=== PATIENT | female | born 1940 | race Two or more races ===

== ENCOUNTER 2017-05-03 20:00 | Emergency (ER) | payer OTHER ==
[~2017-05-03] VITALS: Ht 162.6 cm; Wt 86.2 kg
[~2017-05-03 20:00] MED LIST: APRESOLINE 10MG10 MG; CARDURA1 MG; CLOPIDOGREL BIS75 MG; COZAAR100 MG; DONEPEZIL HCL5 MG; HUMALOG100 U/ML; INTESTINEX1 CAP PO; LASIX40 MG; LEVOTHYROXINE112 MCG; LIPITOR40 MG; METOPROLOL SUC200 MG; NORVASC2.5 MG; PEPCID40 MG PO; PROTONIX40 MG PO; SERTRALINE HCL50 MG; SYNTHROID100 MCG; VASOTEC10 MG PO; ZOFRAN4 MG PO
[2017-05-03] MEDS ORDERED: METOPROLOL ER-1 EAC2 (20:40)
[2017-05-03] MEDS ORDERED: ADULT ASPIRIN81 MG (20:42)
== END 2017-05-03 22:33 | disposition home or self-care (01) ==
LOC: ER 20:00
DX: S50.11XA Contusion of right forearm, initial encounter (principal); L03.113 Cellulitis of right upper limb; W18.39XA Other fall on same level, initial encounter; Y93.89 Activity, other specified; Y92.098 Other place in other non-institutional residence as the place of occurrence of the external cause; Y99.8 Other external cause status

== ENCOUNTER 2017-10-29 14:07 | Inpatient (IN) | payer OTHER ==
[~2017-10-29] VITALS: Ht 149.9 cm; Wt 77.1 kg
[~2017-10-29 14:07] MED LIST changes: +ADULT ASPIRIN81 MG; +METOPROLOL ER-1 EAC2
== END 2017-11-08 12:20 | disposition home or self-care (01) | DRG 280 ==
LOC: ER 14:07 → ICU-2 10-30 07:13 → SEC-K 11-03 09:35 → MEDI 11-03 10:47
PROC: 4A033R1 Measurement of Arterial Saturation, Peripheral, Percutaneous Approach (ICD-10-PCS; principal; 2017-10-30)
PROC: B246ZZZ Ultrasonography of Right and Left Heart (ICD-10-PCS; 2017-10-31)
PROC: 4A12X4Z Monitoring of Cardiac Electrical Activity, External Approach (ICD-10-PCS; 2017-11-03)
DX: I21.4 Non-ST elevation (NSTEMI) myocardial infarction (principal); I50.23 Acute on chronic systolic (congestive) heart failure; F05 Delirium due to known physiological condition; N18.4 Chronic kidney disease, stage 4 (severe); I13.0 Hypertensive heart and chronic kidney disease with heart failure and stage 1 through stage 4 chronic kidney disease, or unspecified chronic kidney disease; E66.01 Morbid (severe) obesity due to excess calories; E11.22 Type 2 diabetes mellitus with diabetic chronic kidney disease; E78.4 Other hyperlipidemia; E03.8 Other specified hypothyroidism; G30.8 Other Alzheimer's disease; F02.80 Dementia in other diseases classified elsewhere, unspecified severity, without behavioral disturbance, psychotic disturbance, mood disturbance, and anxiety; I25.10 Atherosclerotic heart disease of native coronary artery without angina pectoris; I48.0 Paroxysmal atrial fibrillation; I34.0 Nonrheumatic mitral (valve) insufficiency; S61.411A Laceration without foreign body of right hand, initial encounter; X58.XXXA Exposure to other specified factors, initial encounter; Y93.89 Activity, other specified; Y92.89 Other specified places as the place of occurrence of the external cause; Y99.8 Other external cause status; Z78.1 Physical restraint status

== ENCOUNTER 2017-12-19 20:02 | Emergency (ER) | payer OTHER ==
[~2017-12-19] VITALS: Ht 152.4 cm; Wt 72.6 kg
[2017-12-19] MEDS ORDERED: ZYPREXA5 MG (20:45)
[2017-12-19] MEDS ORDERED: METOPROLOL SUCC50 MG (20:46)
[2017-12-19] MEDS ORDERED: ARICEPT10 MG (20:46)
[2017-12-19] MEDS ORDERED: SEROQUEL25 MG (20:46)
[2017-12-19] MEDS ORDERED: ZOLOFT25 MG (20:46)
[2017-12-19] MEDS ORDERED: ZOCOR40 MG (20:47)
[2017-12-19] MEDS ORDERED: PLAVIX75 MG (20:47)
[2017-12-19] MEDS ORDERED: ISOSORBIDE DINI30 MG (20:56)
== END 2017-12-20 09:39 | disposition home or self-care (01) ==
LOC: ER 20:02
DX: R22.43 Localized swelling, mass and lump, lower limb, bilateral (principal); M25.475 Effusion, left foot; M25.474 Effusion, right foot; I13.10 Hypertensive heart and chronic kidney disease without heart failure, with stage 1 through stage 4 chronic kidney disease, or unspecified chronic kidney disease; N18.9 Chronic kidney disease, unspecified; N28.9 Disorder of kidney and ureter, unspecified; E66.01 Morbid (severe) obesity due to excess calories; I48.0 Paroxysmal atrial fibrillation; I73.9 Peripheral vascular disease, unspecified; I25.10 Atherosclerotic heart disease of native coronary artery without angina pectoris; E03.8 Other specified hypothyroidism; G30.8 Other Alzheimer's disease; F02.80 Dementia in other diseases classified elsewhere, unspecified severity, without behavioral disturbance, psychotic disturbance, mood disturbance, and anxiety; E78.49 Other hyperlipidemia; E11.9 Type 2 diabetes mellitus without complications; I25.2 Old myocardial infarction

== ENCOUNTER 2018-04-08 21:20 | Inpatient (IN) | payer OTHER ==
[~2018-04-08] VITALS: Ht 162.6 cm; Wt 72.6 kg
[~2018-04-08 21:20] MED LIST changes: +ARICEPT10 MG; +ISOSORBIDE DINI30 MG; +METOPROLOL SUCC50 MG; +PLAVIX75 MG; +SEROQUEL25 MG; +ZOCOR40 MG; +ZOLOFT25 MG; +ZYPREXA5 MG
--- NOTE | 2018-04-08 21:35 | NUR ---
PT ALERTA Y ORIETNADA X3 ESFERAS SE RECIBE DESDE AMBULANCIA POR PARAMEDICOS Y FAMILIAR. REFIEREN TRAERLA DESDE HOGAR POR INAPETENCIA, DEBILIDAD Y CONJUNTIVITIS DESDE MAURI.
--- NOTE | 2018-04-08 22:37 | NUR ---
PT ALERTA Y ORIENTADA X3 ESFERAS SE LE ORIENTA SOBRE TX Y REFIERE ENTEDER. SE BRADLY MUESTRAS DE DEANNE Y VENOPUNCION CON TECNICAS ASEPTICAS. SE ADMINISTRAN MEDICAMENTOS E IVLFUIDS ORDENADOS. PT TOLERA TX. SE CATETERIZA PARA U/C Y U/A
--- NOTE | 2018-04-09 06:03 | NUR ---
SE RECIBE PACIENTE DEL TURNO ANTERIOR ALERTA Y ORIENTADA X3 EN CAMA CON BARANDAS ELEVADAS Y CABEZERA A 45 GRADOS, AREA DE VENOPUNCION PATENTE Y PRASANNA DE EDEMA BAJANDO MEDICAMENTOS ORDENADOS. PACIENTE NIEGA DOLOR U OTRO SINTOMA, SE MANTIENE BAJO OBSERVACION, SE MANTIENE BAJO OBSERVACION.
--- NOTE | 2018-04-09 09:03 | NUR ---
SE RECIBE DE TURNO ANTERIOR. PACIENTE FEMENINA. AL MOMENTO EN PERIODO DE DESCANSO. CABECERA A 30 GRADOS. BARANDAS ELEVADAS POR HERRING SEGURIDAD. BUEN PATRON RESPIRATORIO. PIEL TIBIA AL TACTO. CANALIZACION PATENTE, PRASANNA DE EDEMA Y/O ENROJECIMIENTO RECIBIENDO 0.9%NSS @100 ML/HR. PACIENTE EN ESPERA DE CONSULTA CON DR E DONALD. PACIENTE ACOMPANADA DE FAMILIAR.
[2018-04-19] MEDS ORDERED: CEFDINIR300 MG PO (14:39)
== END 2018-04-19 14:51 | disposition home or self-care (01) | DRG 698 ==
LOC: ER 21:20 → MEDJ 04-09 10:27
PROVIDERS: ADMIT Internal Medicine
PROC: 0T9B70Z Drainage of Bladder with Drainage Device, Via Natural or Artificial Opening (ICD-10-PCS; 2018-04-09)
PROC: BW40ZZZ Ultrasonography of Abdomen (ICD-10-PCS; principal; 2018-04-17)
PROC: BW4GZZZ Ultrasonography of Pelvic Region (ICD-10-PCS; 2018-04-17)
DX: E11.22 Type 2 diabetes mellitus with diabetic chronic kidney disease (principal); I50.31 Acute diastolic (congestive) heart failure; I21.4 Non-ST elevation (NSTEMI) myocardial infarction; N39.0 Urinary tract infection, site not specified; I13.0 Hypertensive heart and chronic kidney disease with heart failure and stage 1 through stage 4 chronic kidney disease, or unspecified chronic kidney disease; L03.113 Cellulitis of right upper limb; I69.351 Hemiplegia and hemiparesis following cerebral infarction affecting right dominant side; E11.65 Type 2 diabetes mellitus with hyperglycemia; N18.4 Chronic kidney disease, stage 4 (severe); N17.8 Other acute kidney failure; Z79.4 Long term (current) use of insulin; I25.10 Atherosclerotic heart disease of native coronary artery without angina pectoris; E66.01 Morbid (severe) obesity due to excess calories; I48.2 Chronic atrial fibrillation; Z79.01 Long term (current) use of anticoagulants; G30.0 Alzheimer's disease with early onset; F02.80 Dementia in other diseases classified elsewhere, unspecified severity, without behavioral disturbance, psychotic disturbance, mood disturbance, and anxiety; E78.49 Other hyperlipidemia; Z88.0 Allergy status to penicillin; E86.0 Dehydration; Z74.01 Bed confinement status; E03.8 Other specified hypothyroidism; D63.1 Anemia in chronic kidney disease; E87.8 Other disorders of electrolyte and fluid balance, not elsewhere classified; B96.29 Other Escherichia coli [E. coli] as the cause of diseases classified elsewhere